=== PATIENT | female | born 1995 | race Caucasian/White ===

== ENCOUNTER 2021-12-19 17:45 | Emergency (ER) | payer MEDICAID ==
[~2021-12-19] VITALS: Ht 157.5 cm; Wt 90.0 kg
[2021-12-19 18:17] VITALS: BP 153/89
== END 2021-12-19 20:39 | disposition left against medical advice (07) ==
LOC: ER 17:45
DX: Z53.21 Procedure and treatment not carried out due to patient leaving prior to being seen by health care provider (principal); Z86.16 Personal history of COVID-19